=== PATIENT | male | born 1960 | race Caucasian/White ===

== ENCOUNTER 2023-06-01 15:03 | Outpatient (RCR) | payer OTHER, SELFPAY ==
[2023-06-01 15:18] LABS: Hematocrit 49.5 % (39.0-52.0); Hemoglobin 16.4 g/dL (13.0-18.0)
[2023-06-01 15:29] VITALS: BP 169/84
[2023-06-01 15:48] VITALS: BP 154/88
[2023-06-01 15:57] VITALS: BP 161/82
== END 2023-06-02 10:54 | disposition home or self-care (01) ==
LOC: OID 15:03
PROVIDERS: ATTENDING PHYSICIAN Family Medicine; FAMILY PHYSICIAN Internal Medicine
DX: E83.110 Hereditary hemochromatosis (principal)
CPT/HCPCS: 36415; 85014; 85018; 99195

== ENCOUNTER 2023-08-04 15:16 | Outpatient (RCR) | payer OTHER, SELFPAY ==
[2023-08-04 15:24] LABS: % Basophils 0.6 % (0-2); % Eosinophils 2.3 % (0-6); % Immature Granulocytes 0.2 % (0-0.5); % Monocytes 8.6 % (1.7-9.3); % Neutrophils 66.3 % (42.2-75.2); Absolute Eosinophils 0.2 10^3/uL (0-0.7); Absolute Lymphocytes 1.4 10^3/uL (1.2-3.4); Absolute Monocytes 0.6 10^3/uL (0.1-0.6); Absolute Neutrophils 4.3 10^3/uL (1.4-6.5); Hematocrit 50.6 % (39.0-52.0); Hemoglobin 16.7 g/dL (13.0-18.0); Mean Corpuscular Hgb 27.9 pg (27.0-31.0); Mean Corpuscular Volume 84.6 fL (80.0-94.0); Mean Platelet Volume 9.1 fL (7.4-10.4); Platelet Count 263 10^3/uL (130-400); Red Blood Cell Count 5.98 10^6/uL (4.70-6.10); Red Cell Dist. Width 16.5 % (11.5-14.5); White Blood Cell Count 6.5 10^3/uL (4.8-10.8)
[2023-08-04 15:33] VITALS: BP 168/86
[2023-08-04 15:55] VITALS: BP 156/90
[2023-08-04 15:57] VITALS: BP 140/91
== END 2023-08-05 09:38 | disposition home or self-care (01) ==
LOC: OID 15:16
PROVIDERS: ATTENDING PHYSICIAN Family Medicine; FAMILY PHYSICIAN Internal Medicine
DX: E83.110 Hereditary hemochromatosis (principal); Z79.52 Long term (current) use of systemic steroids
CPT/HCPCS: 36415; 85025; 99195

== ENCOUNTER 2023-10-05 15:25 | Outpatient (RCR) | payer OTHER, SELFPAY ==
[2023-09-21 15:10] LABS: % Basophils 0.7 % (0-2); % Eosinophils 2.6 % (0-6); % Immature Granulocytes 0.3 % (0-0.5); % Lymphocytes 16.8 % (20.5-51.1); % Monocytes 8.9 % (1.7-9.3); % Neutrophils 70.7 % (42.2-75.2); Absolute Basophils 0.1 10^3/uL (0-0.2); Absolute Eosinophils 0.2 10^3/uL (0-0.7); Absolute Lymphocytes 1.2 10^3/uL (1.2-3.4); Absolute Monocytes 0.6 10^3/uL (0.1-0.6); Absolute Neutrophils 4.9 10^3/uL (1.4-6.5); Hematocrit 48.5 % (39.0-52.0); Hemoglobin 15.9 g/dL (13.0-18.0); Mean Corp Hgb Conc. 32.8 g/dL (33.0-37.0); Mean Corpuscular Hgb 27.8 pg (27.0-31.0); Mean Corpuscular Volume 84.8 fL (80.0-94.0); Mean Platelet Volume 8.5 fL (7.4-10.4); Platelet Count 234 10^3/uL (130-400); Red Blood Cell Count 5.72 10^6/uL (4.70-6.10); Red Cell Dist. Width 14.7 % (11.5-14.5); White Blood Cell Count 6.9 10^3/uL (4.8-10.8)
[2023-10-05 15:31] LABS: % Basophils 0.9 % (0-2); % Eosinophils 4.5 % (0-6); % Immature Granulocytes 0.2 % (0-0.5); % Lymphocytes 24.8 % (20.5-51.1); % Monocytes 10.2 % (1.7-9.3); % Neutrophils 59.4 % (42.2-75.2); Absolute Basophils 0.1 10^3/uL (0-0.2); Absolute Eosinophils 0.2 10^3/uL (0-0.7); Absolute Lymphocytes 1.3 10^3/uL (1.2-3.4); Absolute Monocytes 0.5 10^3/uL (0.1-0.6); Absolute Neutrophils 3.2 10^3/uL (1.4-6.5); Hematocrit 48.4 % (39.0-52.0); Hemoglobin 15.7 g/dL (13.0-18.0); Mean Corp Hgb Conc. 32.4 g/dL (33.0-37.0); Mean Corpuscular Hgb 27.4 pg (27.0-31.0); Mean Corpuscular Volume 84.3 fL (80.0-94.0); Mean Platelet Volume 8.6 fL (7.4-10.4); Platelet Count 283 10^3/uL (130-400); Red Blood Cell Count 5.74 10^6/uL (4.70-6.10); Red Cell Dist. Width 14.3 % (11.5-14.5); White Blood Cell Count 5.3 10^3/uL (4.8-10.8)
== END 2023-10-06 23:59 | disposition home or self-care (01) ==
LOC: OID 15:25
PROVIDERS: ATTENDING PHYSICIAN Family Medicine; FAMILY PHYSICIAN Internal Medicine
DX: E83.110 Hereditary hemochromatosis (principal); Z79.52 Long term (current) use of systemic steroids
CPT/HCPCS: 36415; 85025

== ENCOUNTER → 2023-11-12 13:43 | Outpatient (REF) | payer OTHER, SELFPAY | LOC: HWRAD 13:43 | PROVIDERS: ATTENDING PHYSICIAN Internal Medicine | DX: R19.7 Diarrhea, unspecified (principal) | CPT/HCPCS: 74177; Q9967 ==

== ENCOUNTER 2023-11-12 18:11 | Emergency (ER) | payer OTHER, SELFPAY ==
[2023-11-12 18:13] VITALS: BP 190/119
[2023-11-12 18:44] VITALS: BMI 32.1
[2023-11-12 19:14] LABS: % Basophils 0.8 % (0-2); % Eosinophils 2.1 % (0-6); % Immature Granulocytes 0.3 % (0-0.5); % Lymphocytes 23.5 % (20.5-51.1); % Monocytes 8.2 % (1.7-9.3); % Neutrophils 65.1 % (42.2-75.2); Absolute Basophils 0.1 10^3/uL (0-0.2); Absolute Eosinophils 0.1 10^3/uL (0-0.7); Absolute Lymphocytes 1.5 10^3/uL (1.2-3.4); Absolute Monocytes 0.5 10^3/uL (0.1-0.6); Absolute Neutrophils 4.3 10^3/uL (1.4-6.5); Hematocrit 49.1 % (39.0-52.0); Hemoglobin 16.6 g/dL (13.0-18.0); Mean Corp Hgb Conc. 33.8 g/dL (33.0-37.0); Mean Corpuscular Hgb 27.3 pg (27.0-31.0); Mean Corpuscular Volume 80.8 fL (80.0-94.0); Mean Platelet Volume 9.1 fL (7.4-10.4); Nucleated Red Blood Cells % 0 % (-); Platelet Count 294 10^3/uL (130-400); Red Blood Cell Count 6.08 10^6/uL (4.70-6.10); Red Cell Dist. Width 14.8 % (11.5-14.5); White Blood Cell Count 6.6 10^3/uL (4.8-10.8)
[2023-11-12 19:17] LABS: Urine Albumin Trace (Neg - Trace); Urine Bilirubin Negative (Negative); Urine Character Clear (Clear); Urine Color Yellow; Urine Glucose Negative (Negative); Urine Ketone Negative (Negative); Urine Leukocyte Negative (Negative); Urine Nitrite Negative (Negative); Urine Occult Blood Negative (Negative); Urine Specific Gravity 1.005 (<1.030); Urine Urobilinogen Negative (Neg - 1+)
[2023-11-12 19:25] LABS: COVID-19 Antigen Negative (Negative)
[2023-11-12 19:27] LABS: ALT (SGPT) 52 U/L (0-50); AST (SGOT) 53 U/L (17-59); Albumin 4.3 g/dl (3.5-5.0); Alkaline Phosphatase 95 U/L (38-126); Blood Urea Nitrogen 19 mg/dl (9-20); Calcium 9.5 mg/dl (8.4-10.2); Carbon Dioxide 23 mmol/L (22-30); Chloride 104 mmol/L (98-107); Estimated Creatinine Clearance 82 ml/min; Glucose 114 mg/dl (70-99); Potassium 4.4 mmol/L (3.5-5.1); Sodium 139 mmol/L (135-145); Total Bilirubin 0.6 mg/dl (0.2-1.3); eGFR > 60.00
[2023-11-12 19:29] LABS: Lipase 194 U/L (23-300)
[2023-11-12 20:55] VITALS: BP 151/111
--- NOTE | 2023-11-12 23:11 | ED.GENMED ---
History of Present Illness
General
Chief Complaint: Abnormal Lab Value
Source: patient
Exam Limitations: none
Time Seen by Provider: 11/12/23 18:23
Nursing documentation reviewed up to this point in time: agreed with
History of Present Illness
History of Present Illness:
63-year-old male with history as documented presents to the ER for evaluation of abnormal CT as an outpatient. Patient says he has been dealing with vague abdominal fullness and left flank pain (he attributes to bulging disc) for weeks to months.
He says that he saw his primary doctor and was ordered for a CT of his abdomen which she had done today. CT showed distended bladder with left-sided hydroureteronephrosis. No obstructive mass or stone. He was referred to the ER for assessment.
He does admit that he has significant urinary frequency�he says that he wakes 6-7 times per night to urinate. He does have trouble with his urinary stream. He says that he has seen a urologist years ago and was on Flomax for a period of time but
he has since discontinued this. He denies any dysuria. He denies any fever or chills. He denies any nausea, vomiting, diarrhea or constipation. He denies any other complaints.
Past History
Past History
ED Past Medical History: Arrthythmia, HTN and Hypothyroidism
ED Past Surgical History: None
Social History
Tobacco: Non-smoker
Alcohol: None
Personal:
Living: with family
Review of Systems
Review of Systems
All Other Systems: ROS reviewed and negative except as documented in HPI and ROS
Constitutional: Denies fever
Respiratory: Denies trouble breathing
Cardiac: Denies chest pain
ABD/GI: Reports abdominal pain; Denies nausea, vomiting, diarrhea or constipated
: Reports flank pain and difficulty voiding; Denies dysuria, frequency or incontinence
Musculoskeletal: Denies neck pain or back pain
Neurological: Denies headache
Phy Exam
Physical Exam
Physical Exam:
General: Awake, alert, oriented x3; no acute distress
Head: Normocephalic, atraumatic
Eyes: Conjunctiva normal
Throat: Airway intact, handling secretions
Neck: Trachea midline
Lungs: Breathing comfortably with no distress, no evidence of accessory muscle use, no cyanosis
Heart: Regular rate
Abd: Soft, non distended, minimal suprapubic tenderness; his bladder is palpable
Back: No CVA tenderness
Neuro: No gross deficits
Extremities: Warm and well-perfused
Scores
Heart Failure Risk
Heart Failure Risk Score: Not Applicable
Heart Score for Chest Pain Patients
STEMI patient?: Not applicable
Withdrawal Assessment of Alcohol
Withdrawal Assessment Completed?: Not applicable
Course
Orders/Labs/Results
Orders:
Orders
11/12/23 18:24
Iohexol [Omnipaque] See Protocol PO NOW STA
11/12/23 18:28
Bladder Scan- Treatment ONCE
11/12/23 18:29
Iohexol [Omnipaque] 50 ml .ROUTE .STK-MED ONE
11/12/23 18:49
Moura Placement- Treatment ONCE
Reason for insertion: Outlet obstruction
11/12/23 18:52
COVID-19 Antigen Urgent
Source: Nasal Swab
Complete Blood Count/With Diff Urgent
Comprehensive Metabolic Panel Urgent
Lipase Urgent
Urinalysis Reflex To Culture Urgent
Date Specimen was Collected: 11/12/23
Time Specimen was Collected: 18:51
Abnormal Lab Results
11/12/23
18:52
RDW 14.8 H %
(11.5-14.5)
Glucose 114 H mg/dl
(70-99)
ALT 52 H U/L
(0-50)
11/12/23 18:52
11/12/23 18:52
Vital Signs
Initial and Last Documented VS:
Initial Vital Signs
Temp Pulse Resp BP Pulse Ox
37.2 C 89 18 190/119 95
11/12/23 18:13 11/12/23 18:13 11/12/23 18:13 11/12/23 18:13 11/12/23 18:13
Last Documented Vital Signs
Temp Pulse Resp BP Pulse Ox
37.2 C 85 14 151/111 97
11/12/23 18:13 11/12/23 20:55 11/12/23 20:55 11/12/23 20:55 11/12/23 20:55
MDM/Problems Addressed
Differential Diagnosis Includes:
Prostatism, obstructive mass
MDM/Problems Addressed:
63-year-old male presents for evaluation of abnormal CT�found to have distended bladder with left hydroureteronephrosis. No mass or stone noted. Has been dealing with vague abdominal and flank discomfort for weeks to months. Had outpatient CT as
part of this workup. He does admit that he has symptoms of prostatism. It has been years since he has seen a urologist and he is not on any Flomax. His bladder scan showed greater than 1300 cc retained urine in his bladder. A Moura catheter was
placed he drained for 1500 cc of clear yellow urine. Had improvement in his vague abdominal discomfort and flank pain after catheter placed. His labs were unremarkable�specifically he had an acceptable creatinine of 1.1. His urinalysis was clear.
Will start on Flomax. Refer to urology for follow-up. Patient comfortable with this plan. Spoke about return precautions all questions answered.
Acute Exacerbation and/or Progression of Chronic Illness:
Acutely hypertensive�patient admits to missing a dose of his blood pressure medication. It improved without intervention continue to monitor but no emergent antihypertensives indicated with no signs or symptoms of hypertensive emergency today.
Acute Exacerbation and/or Progression of Chronic Illness: HTN
*Radiology
Radiology exam reviewed: radiology read reviewed
*Pulse Oximetry
Patient hypoxic: no
*Critical Care Note
Total Time (30-74mins, 75-104mins- exclusive of procedures): Not Applicable
Data Reviewed
Review of Other/Old Records Reveals: Radiology Studies
Source: patient and records
ED Attending Note
-
Portions of this chart may have been created with voice recognition software.� Occasional wrong word or��sound alike� substitutions may have occurred due to the inherent limitations of voice recognition software.
Discharge Plan
Departure
Patient Disposition: Home (Routine Discharge)
Date of Disposition: 11/12/23
Time of Disposition: 20:26
Patient with high blood pressure during this ER visit?: Yes
Discharge Problem:
Acute on chronic urinary retention
Instructions: Urinary retention
Prescriptions:
New
tamsulosin [Flomax] 0.4 mg capsule
0.4 mg PO DAILY Qty: 30 0RF
No Action
testosterone cypionate [Depo-Testosterone] 100 MG/ML oil
0.5 ml IM .ONCE A WEEK WED
Patient Comments:
takes on wednesdays
levothyroxine [Synthroid] 150 MCG tablet
150 mcg PO DAILY
flecainide 50 MG tablet
50 mg PO Q12H
ascorbic acid (vitamin C) 1,500 MG tablet extended release
3,000 mg PO DAILY
vitamin E (dl, acetate) 400 UNITS capsule
400 units PO DAILY
nebivolol [Bystolic] 5 MG tablet
2.5 mg PO HS
Xarelto 2.5 MG tablet
2.5 mg PO DAILY
losartan 100 MG tablet
100 mg PO DAILY
Referrals:
Meng Saldivar MD [Active] - Call in 1-3 days for appt
Pool Medina DO [Family Provider] -
Activity Restrictions/Additional Instructions:
Thank you for visiting the Emergency Department at [facility].
1. Please schedule a follow up appointment as directed. Call first thing tomorrow morning to make an appointment.
2. If indicated, please take your medications as instructed and indicated on discharge paperwork.
3. If any of your symptoms do not improve, or persist, or become more severe within 6-12 hours, please return to the emergency department for further care.
4. Please return to the emergency department if you develop a headache, neck pain/stiffness, fever greater than 100.4F, chest pain, shortness of breath, persistent nausea, vomiting, slurred speech, difficulty walking, numbness/tingling, weakness,
signs of infection or any other symptoms that are worrisome to you.
Please call [phone] if you have any questions.
Interventions
Interventions:
*Risk Screen - Suicide Last Done: 11/12/23 18:13
*General Assessment Last Done: 11/12/23 18:13
*Neglect/Abuse Screening Last Done: 11/12/23 18:13
ED- Fall Risk Assessment Last Done: 11/12/23 18:44
*ED COVID-19 Vaccine History Last Done: 11/12/23 18:44
*Nursing Disposition Last Done: 11/12/23 20:59
Discharge Date and Time
Discharge Date/Time: 11/12/23 20:59
Print Language: CUBAN
== END 2023-11-12 20:59 | disposition home or self-care (01) ==
LOC: EMR 18:11
PROVIDERS: EMERGENCY PHYSICIAN Emergency Medicine; FAMILY PHYSICIAN Internal Medicine
DX: R33.9 Retention of urine, unspecified (principal); R10.9 Unspecified abdominal pain; R35.0 Frequency of micturition; N13.30 Unspecified hydronephrosis; Z11.52 Encounter for screening for COVID-19; E03.9 Hypothyroidism, unspecified; I10 Essential (primary) hypertension; I49.9 Cardiac arrhythmia, unspecified; I48.91 Unspecified atrial fibrillation; B02.9 Zoster without complications
CPT/HCPCS: 99284; 51798; 51702; 80053; 81003; 83690; 85025; 87811

== ENCOUNTER 2023-12-02 14:53 | Outpatient (RCR) | payer OTHER, SELFPAY ==
[2023-12-02 15:06] LABS: % Basophils 0.5 % (0-2); % Eosinophils 2.3 % (0-6); % Immature Granulocytes 0.3 % (0-0.5); % Lymphocytes 20.6 % (20.5-51.1); % Monocytes 7.4 % (1.7-9.3); % Neutrophils 68.9 % (42.2-75.2); Absolute Eosinophils 0.2 10^3/uL (0-0.7); Absolute Lymphocytes 1.3 10^3/uL (1.2-3.4); Absolute Monocytes 0.5 10^3/uL (0.1-0.6); Absolute Neutrophils 4.5 10^3/uL (1.4-6.5); Hematocrit 49.8 % (39.0-52.0); Hemoglobin 16.4 g/dL (13.0-18.0); Mean Corp Hgb Conc. 32.9 g/dL (33.0-37.0); Mean Corpuscular Hgb 27.6 pg (27.0-31.0); Mean Corpuscular Volume 83.8 fL (80.0-94.0); Mean Platelet Volume 8.6 fL (7.4-10.4); Platelet Count 283 10^3/uL (130-400); Red Blood Cell Count 5.94 10^6/uL (4.70-6.10); Red Cell Dist. Width 14.9 % (11.5-14.5); White Blood Cell Count 6.5 10^3/uL (4.8-10.8)
[2023-12-02 15:14] VITALS: BP 183/97
[2023-12-02 15:25] VITALS: BP 173/101
[2023-12-02 15:35] VITALS: BP 176/102
== END 2023-12-03 09:11 | disposition home or self-care (01) ==
LOC: OID 14:53
PROVIDERS: ATTENDING PHYSICIAN Family Medicine; FAMILY PHYSICIAN Internal Medicine
DX: E83.110 Hereditary hemochromatosis (principal); Z79.52 Long term (current) use of systemic steroids
CPT/HCPCS: 36415; 85025; 99195

== ENCOUNTER → 2023-12-20 15:43 | Outpatient (REF) | payer OTHER, SELFPAY | LOC: PAVMRI 15:43 | PROVIDERS: ATTENDING PHYSICIAN Internal Medicine; REFERRING PHYSICIAN Neurological Surgery | DX: N31.9 Neuromuscular dysfunction of bladder, unspecified (principal); M48.061 Spinal stenosis, lumbar region without neurogenic claudication | CPT/HCPCS: 72148 ==

== ENCOUNTER 2024-02-09 15:04 | Outpatient (RCR) | payer OTHER, SELFPAY ==
[2024-02-09 15:19] LABS: % Basophils 0.8 % (0-2); % Eosinophils 2.3 % (0-6); % Immature Granulocytes 0.1 % (0-0.5); % Lymphocytes 19.4 % (20.5-51.1); % Neutrophils 70.4 % (42.2-75.2); Absolute Basophils 0.1 10^3/uL (0-0.2); Absolute Eosinophils 0.2 10^3/uL (0-0.7); Absolute Lymphocytes 1.6 10^3/uL (1.2-3.4); Absolute Monocytes 0.6 10^3/uL (0.1-0.6); Absolute Neutrophils 5.6 10^3/uL (1.4-6.5); Hematocrit 52.1 % (39.0-52.0); Mean Corp Hgb Conc. 32.6 g/dL (33.0-37.0); Mean Corpuscular Hgb 27.5 pg (27.0-31.0); Mean Corpuscular Volume 84.2 fL (80.0-94.0); Mean Platelet Volume 8.7 fL (7.4-10.4); Platelet Count 293 10^3/uL (130-400); Red Blood Cell Count 6.19 10^6/uL (4.70-6.10); Red Cell Dist. Width 14.5 % (11.5-14.5)
[2024-02-09 15:45] VITALS: BP 170/98
[2024-02-09 16:02] VITALS: BP 160/98
[2024-02-09 16:05] VITALS: BP 160/98
== END 2024-02-10 08:38 | disposition home or self-care (01) ==
LOC: OID 15:04
PROVIDERS: ATTENDING PHYSICIAN Family Medicine; FAMILY PHYSICIAN Internal Medicine
DX: E83.110 Hereditary hemochromatosis (principal); Z79.52 Long term (current) use of systemic steroids
CPT/HCPCS: 36415; 85025

== ENCOUNTER 2024-03-23 13:27 | Outpatient (RCR) | payer MEDICARE, OTHER, SELFPAY ==
[2024-03-23 13:40] LABS: % Basophils 0.6 % (0-2); % Eosinophils 1.8 % (0-6); % Immature Granulocytes 0.2 % (0-0.5); % Lymphocytes 21.9 % (20.5-51.1); % Monocytes 9.4 % (1.7-9.3); % Neutrophils 66.1 % (42.2-75.2); Absolute Eosinophils 0.1 10^3/uL (0-0.7); Absolute Lymphocytes 1.5 10^3/uL (1.2-3.4); Absolute Monocytes 0.6 10^3/uL (0.1-0.6); Absolute Neutrophils 4.4 10^3/uL (1.4-6.5); Hematocrit 50.8 % (39.0-52.0); Hemoglobin 16.1 g/dL (13.0-18.0); Mean Corp Hgb Conc. 31.7 g/dL (33.0-37.0); Mean Corpuscular Hgb 26.1 pg (27.0-31.0); Mean Corpuscular Volume 82.2 fL (80.0-94.0); Mean Platelet Volume 8.5 fL (7.4-10.4); Platelet Count 324 10^3/uL (130-400); Red Blood Cell Count 6.18 10^6/uL (4.70-6.10); Red Cell Dist. Width 14.4 % (11.5-14.5); White Blood Cell Count 6.6 10^3/uL (4.8-10.8)
== END 2024-04-07 23:59 | disposition home or self-care (01) ==
LOC: OID 13:27
PROVIDERS: ATTENDING PHYSICIAN Family Medicine; FAMILY PHYSICIAN Internal Medicine
DX: E83.110 Hereditary hemochromatosis (principal); Z79.52 Long term (current) use of systemic steroids
CPT/HCPCS: 36415; 85025

== ENCOUNTER 2024-04-13 10:29 | Outpatient (RCR) | payer MEDICARE, OTHER, SELFPAY ==
[2024-04-13 11:00] VITALS: BP 174/93
[2024-04-13 11:02] LABS: % Basophils 0.7 % (0-2); % Eosinophils 2.2 % (0-6); % Immature Granulocytes 0.2 % (0-0.5); % Lymphocytes 21.7 % (20.5-51.1); % Monocytes 9.4 % (1.7-9.3); % Neutrophils 65.8 % (42.2-75.2); Absolute Eosinophils 0.1 10^3/uL (0-0.7); Absolute Lymphocytes 1.3 10^3/uL (1.2-3.4); Absolute Monocytes 0.6 10^3/uL (0.1-0.6); Absolute Neutrophils 3.9 10^3/uL (1.4-6.5); Hematocrit 52.6 % (39.0-52.0); Mean Corp Hgb Conc. 32.3 g/dL (33.0-37.0); Mean Corpuscular Hgb 26.1 pg (27.0-31.0); Mean Corpuscular Volume 80.7 fL (80.0-94.0); Mean Platelet Volume 8.6 fL (7.4-10.4); Platelet Count 255 10^3/uL (130-400); Red Blood Cell Count 6.52 10^6/uL (4.70-6.10); Red Cell Dist. Width 16.5 % (11.5-14.5); White Blood Cell Count 5.9 10^3/uL (4.8-10.8)
[2024-04-13 11:30] VITALS: BP 173/84
[2024-04-13 11:35] VITALS: BP 167/95
== END 2024-04-14 08:41 | disposition home or self-care (01) ==
LOC: OID 10:29
PROVIDERS: ATTENDING PHYSICIAN Family Medicine; FAMILY PHYSICIAN Internal Medicine
DX: E83.110 Hereditary hemochromatosis (principal); Z79.52 Long term (current) use of systemic steroids
CPT/HCPCS: 36415; 85025; 99195

== ENCOUNTER 2024-06-05 08:05 | Day surgery (SDC) | payer MEDICARE, OTHER, SELFPAY ==
[2024-05-26 08:08] VITALS: BMI 34.4
[2024-06-05] VITALS (12 sets, daily range): BP systolic 138–196; BP diastolic 66–93; BMI 33.0
--- NOTE | 2024-06-05 07:34 | ITS.CL.ABL ---
Production Support Engineer - Ablation
Ablation
Procedure Report:
ELECTROPHYSIOLOGIC STUDY AND POSSIBLE ABLATION
DATE: June 05, 2024
Primary Care Provider: Dr Pool Medina
INDICATION:
Symptomatic Atrial Fibrillation.
He has mostly been cared for at [facility] and he carries a history of paroxysmal atrial fibrillation as well as atrial flutter.� He has been treated with flecainide as well as beta-bj for rhythm control and Xarelto for atrial
fibrillation related thromboembolic risk reduction.� On antiarrhythmic drug therapy he continues to have occasional breakthroughs of symptomatic atrial fibrillation and atrial flutter.
HISTORY: See H and P.
Symptomatic AF, poorly controlled with attempted medical therapy
HAS-BLED: 1
Age
CHADSVASc: 2
HTN
Age
PRESENTING RHYTHM: SR AF
HISTORY: See H and P.
Symptomatic AF, poorly controlled with attempted medical therapy.
ANTIARRHYTHMIC DRUG: Flecainide was stopped 3 days prior to procedure
ANTICOAGULATION: Rivaroxaban 20 mg daily
'TIME-OUT': called and confirmed.
SEDATION/ANESTHESIA: provided via the anesthesia department using general anesthesia.
PROCEDURE:
Ultrasound Guidance with real-time visualization of needle insertion and vessel patency performed by me for femoral venous Vascular Access.
Under real-time US guidance, the needle was advanced with negative pressure into the vein. The needle was seen entering the vessel lumen with a good return of dark red flow, the syringe was removed, non-pulsatile, dark red blood low was noted and
the wire was passed without difficulty, then the needle was removed. US confirmed the wire was in the vein, not going into an artery,
Images were taken and saved for the patient's permanent record. Imaging findings typical femoral venous anatomy. Direct visualization of needle puncture into the femoral vein was observed and recorded.
A decapolar CS catheter was placed within the CS for mapping and pacing.
The intracardiac ultrasound catheter was positioned in the RA for continuous intracardiac ultrasound imaging.
Heparin bolus and infusion to target ACT at 300 -350 seconds was administered. Transseptal puncture was performed. This entailed advancing a sheath with dilator into the superior vena cava and withdrawing both (monitoring intracardiac ultrasound,
fluoroscopy and tip pressure) with the tip oriented toward the atrial septum. The fossa ovalis was engaged (indicated by sudden displacement of the sheath tip as well as tenting of the fossa seen on intracardiac ultrasound).
Transseptal puncture was performed. Left atrial catheter position was confirmed by echocardiographic imaging, pressure monitoring (LA mean pressure 8 mm Hg) and fluoroscopy. The sheath was advanced over the dilator and positioned in the left
atrium.
The [employer] multipolar mapping/ablation Sphere-9 catheter was positioned through the transseptal sheath for high density mapping.
Geometry and voltage mapping was performed using the Snapwire mapping system for three-dimensional electroanatomical mapping.
Catheter positioning was guided and confirmed using both I.C.E. and fluoroscopy.
- PV isolation approach was used to electrically isolate each PV ostia: Common Left with early branching into LSPV and LIPV, individual RSPV and RIPV.
- Additional energy applications/additional ablation set was required to accomplish wide area circumferential ablation around each of the pulmonary vein sets and additionally ablation to accomplish LA posterior wall ablation.
Remapping with the Sphere-9 catheter found that all PVPs were eliminated at each vein demonstrating entrance block. Also pacing around the the circumference of the ostia was performed at 10 ma and 2.0 msec output to assess for exit block. This
demonstrated electrical isolation at each of the pulmonary vein ostia (LSPV, LIPV, RSPV, RIPV). There is also entrance and exit block at the LA posterior wall.
- He has a documented typical right atrial flutter therefore this arrhythmia was also targeted during today's ablation. This was accomplished via cavotricuspid isthmus mapping and ablation creating a line of electrical block from the tricuspid
valve annulus down to the inferior vena cava along a 6:00 line and JAPANESE 30 degrees. RF applications via the Affera Sphere 9 closer to the tricuspid annulus and pulsed electric field applications as I moved through the isthmus towards the inferior
vena cava. at the conclusion of this, pacing from both the lateral as well as medial aspect of the tricuspid annulus revealed a discontinuity in the wavefront of atrial activation along the tricuspid annulus-IVC isthmus; sites medial to 6 o�clock
were activated from the medial aspect, and those lateral to 6 o�clock were activated from the lateral aspect.��Additionally, three-dimensional electroanatomical mapping also found a line of electrical block at the ablation sites. This suggests that
the flutter circuit utilizing this isthmus as a critical portion of its propagation had been interrupted.�
Programmed electrostimulation (burst atrial pacing as well as delivery of atrial decremental extrastimuli down to atrial ERP) failed to induce any sustained arrhythmias.
I.C.E. :
Pre-Ablation Post-Ablation
LVEF: 55 % 55 %
WMA: none none
Pericardial effusion: none none
COMPLICATIONS:
None
SUMMARY:
- Mapping and ablation to isolate the PVs
- Additional AF ablation set after PVI (left atrial posterior wall mapping and ablation).
- Mapping and ablation of second tachycardia (SVT in the form of typical counterclockwise right atrial CTI dependent flutter)
- 3-D Electroanatomical Mapping
- Intracardiac Ultrasound
- Ultrasound guidance for vascular access
Post ablation, I discussed today's findings and results with the patient's , Audrey.
RECOMMENDATIONS:
- Observe in monitored bed.
- Maintain oral anticoagulation, rivaroxaban 20 mg daily.
- Discontinue flecainide
- Office visit with Reyna Marquez NP is scheduled for August 15, 2024
Copy to:
Dr Pool Medina
[2024-06-05] MEDS: FLOMAX 0.4 MG PO (09:18)
[2024-06-05 10:55] LABS: ACT-LR - POC 256 Seconds (116-155)
[2024-06-05 11:14] LABS: ACT-LR - POC 273 Seconds (116-155)
[2024-06-05 11:34] LABS: ACT-LR - POC 347 Seconds (116-155)
[2024-06-05 11:48] LABS: ACT-LR - POC 289 Seconds (116-155)
--- NOTE | 2024-06-05 17:19 | W.PN.UPDATE ---
Update Note
Progress Note Update
Pt seen post PFA. Right groin site without ht/bleeding, non tender. OOB ambulating, urinating without difficulty. Post EKG NSR 60s, no acute changes. Resume xarelto with one dose tonight at 6pm, then resume regular time in AM. Discontinue
flecainide. Followup at [facility] as scheduled. Home later today if groin site/tele remain stable.
== END 2024-06-05 17:00 | disposition home or self-care (01) ==
LOC: CATH 08:05
PROVIDERS: ATTENDING PHYSICIAN Internal Medicine Cardiovascular Disease; FAMILY PHYSICIAN Internal Medicine
DX: I48.0 Paroxysmal atrial fibrillation (principal); I10 Essential (primary) hypertension; I48.92 Unspecified atrial flutter; E78.5 Hyperlipidemia, unspecified; E66.9 Obesity, unspecified; Z68.34 Body mass index [BMI] 34.0-34.9, adult; G47.33 Obstructive sleep apnea (adult) (pediatric); M19.90 Unspecified osteoarthritis, unspecified site; E03.9 Hypothyroidism, unspecified; Z79.899 Other long term (current) drug therapy; Z79.01 Long term (current) use of anticoagulants; Z79.890 Hormone replacement therapy; I47.19 Other supraventricular tachycardia
CPT/HCPCS: C1769; C1766; C1730; C1892; C1733; C1894; 76937; 85347; 86900; 86901; 93005; 93655; 93656; 93657

== ENCOUNTER 2024-07-04 15:08 | Outpatient (RCR) | payer MEDICARE, OTHER, SELFPAY ==
[2024-06-16 15:25] LABS: % Basophils 0.6 % (0-2); % Eosinophils 2.3 % (0-6); % Immature Granulocytes 0.3 % (0-0.5); % Lymphocytes 20.2 % (20.5-51.1); % Monocytes 8.9 % (1.7-9.3); % Neutrophils 67.7 % (42.2-75.2); Absolute Eosinophils 0.2 10^3/uL (0-0.7); Absolute Lymphocytes 1.4 10^3/uL (1.2-3.4); Absolute Monocytes 0.6 10^3/uL (0.1-0.6); Absolute Neutrophils 4.7 10^3/uL (1.4-6.5); Hematocrit 48.3 % (39.0-52.0); Hemoglobin 15.5 g/dL (13.0-18.0); Mean Corp Hgb Conc. 32.1 g/dL (33.0-37.0); Mean Corpuscular Hgb 26.3 pg (27.0-31.0); Mean Platelet Volume 8.5 fL (7.4-10.4); Platelet Count 311 10^3/uL (130-400); Red Blood Cell Count 5.89 10^6/uL (4.70-6.10); Red Cell Dist. Width 17.2 % (11.5-14.5); White Blood Cell Count 6.9 10^3/uL (4.8-10.8)
[2024-07-04 15:21] LABS: % Basophils 0.8 % (0-2); % Eosinophils 1.9 % (0-6); % Immature Granulocytes 0.1 % (0-0.5); % Lymphocytes 21.1 % (20.5-51.1); % Monocytes 9.1 % (1.7-9.3); Absolute Basophils 0.1 10^3/uL (0-0.2); Absolute Eosinophils 0.1 10^3/uL (0-0.7); Absolute Lymphocytes 1.6 10^3/uL (1.2-3.4); Absolute Monocytes 0.7 10^3/uL (0.1-0.6); Absolute Neutrophils 4.9 10^3/uL (1.4-6.5); Hematocrit 51.2 % (39.0-52.0); Hemoglobin 16.5 g/dL (13.0-18.0); Mean Corp Hgb Conc. 32.2 g/dL (33.0-37.0); Mean Corpuscular Hgb 26.3 pg (27.0-31.0); Mean Corpuscular Volume 81.7 fL (80.0-94.0); Mean Platelet Volume 8.5 fL (7.4-10.4); Platelet Count 251 10^3/uL (130-400); Red Blood Cell Count 6.27 10^6/uL (4.70-6.10); Red Cell Dist. Width 17.7 % (11.5-14.5); White Blood Cell Count 7.3 10^3/uL (4.8-10.8)
[2024-07-04 15:29] VITALS: BP 186/100
[2024-07-04 15:53] VITALS: BP 166/105
[2024-07-04 16:00] VITALS: BP 157/102
== END 2024-07-05 08:33 | disposition home or self-care (01) ==
LOC: OID 15:08
PROVIDERS: ATTENDING PHYSICIAN Family Medicine; FAMILY PHYSICIAN Internal Medicine
DX: E83.110 Hereditary hemochromatosis (principal); Z79.52 Long term (current) use of systemic steroids
CPT/HCPCS: 36415; 85025; 99195

== ENCOUNTER 2024-09-05 14:57 | Outpatient (RCR) | payer MEDICARE, OTHER, SELFPAY ==
[2024-09-05 15:08] LABS: Hematocrit 50.3 % (39.0-52.0); Hemoglobin 16.4 g/dL (13.0-18.0); Mean Corp Hgb Conc. 32.6 g/dL (33.0-37.0); Mean Corpuscular Volume 80.5 fL (80.0-94.0); Platelet Count 280 10^3/uL (130-400); Red Cell Dist. Width 15.3 % (11.5-14.5)
== END 2024-09-13 12:50 | disposition home or self-care (01) ==
LOC: OID 14:57
PROVIDERS: ATTENDING PHYSICIAN Family Medicine; FAMILY PHYSICIAN Internal Medicine
DX: E83.110 Hereditary hemochromatosis (principal); Z79.52 Long term (current) use of systemic steroids
CPT/HCPCS: 36415; 85025

== ENCOUNTER 2025-01-30 15:14 | Outpatient (RCR) | payer MEDICARE, OTHER, SELFPAY ==
[2025-01-30 15:30] VITALS: BP 173/72
[2025-01-30 15:50] VITALS: BP 153/78
[2025-01-30 15:55] VITALS: BP 175/93
== END 2025-01-31 08:19 | disposition home or self-care (01) ==
LOC: OID 15:14
PROVIDERS: ATTENDING PHYSICIAN Family Medicine
DX: E83.119 Hemochromatosis, unspecified (principal); Z79.52 Long term (current) use of systemic steroids
CPT/HCPCS: 99195